=== PATIENT | female | born 1950 | race African-American/Black ===

== ENCOUNTER 2017-10-11 10:34 | Outpatient (CLI) | payer MEDICARE, OTHER ==
--- NOTE | 2017-10-11 11:35 | MMO ---
BILATERAL DIGITAL SCREENING MAMMOGRAMS: Date: 10/11/17 HISTORY: 66-year-old female presents for digital screening mammogram. FINDINGS: This patient's mammogram was interpreted with the assistance of computer-aided detection. Scattered areas of fibroglandular density are noted bilaterally. There are stable typically benign c alcifications bilaterally. Stable circumscribed mass in the left breast. IMPRESSION: BIRADS 2: Benign Finding(s) Continue routine screening. POS: REBECCA
== END 2017-10-11 10:35 | disposition home or self-care (01) ==
LOC: SCSMAMMO 10:34
PROVIDERS: ATTEND Family Medicine
DX: Z12.31 Encounter for screening mammogram for malignant neoplasm of breast (principal)
CPT/HCPCS: 77067; G0202

== ENCOUNTER 2018-11-06 10:18 | Outpatient (CLI) | payer MEDICARE, OTHER ==
--- NOTE | 2018-11-06 15:18 | MMO ---
BILATERAL SCREENING MAMMOGRAM: Date: 11/06/18 COMPARISON: 10/11/17, 09/22/16, and 06/30/15. HISTORY: Screening mammography. FINDINGS: This patient's mammogram was interpreted with the assistance of computer-aided detection. Scattered fibroglandular densities are present. Stable nodular density is seen on the left in the retroareolar region suggesting an intramammary node . IMPRESSION: BIRADS 2: Benign Finding(s) Annual screening mammography recommended. POS: REBECCA
== END 2018-11-06 10:19 | disposition home or self-care (01) ==
LOC: SCSMAMMO 10:18
PROVIDERS: ATTEND Family Medicine
DX: Z12.31 Encounter for screening mammogram for malignant neoplasm of breast (principal)
CPT/HCPCS: 77067

== ENCOUNTER 2019-01-01 11:17 | Outpatient (CLI) | payer MEDICARE, OTHER ==
[2019-01-01 14:54] LABS: #Basophils 0.1 thou/uL (0.0-0.2); #Eosinphils 0.1 thou/uL (0.0-0.7); #Lymphocytes 2.9 thou/uL (1.20-3.40); #Monocytes 0.7 thou/uL (0.11-0.59); #Neutrophils 4.7 thou/uL (1.40-6.50); %Basophils 1.1 % (0.0-1.0); %Eosinophils 1.1 % (0.0-10.0); %Lymphocytes 34.1 % (21.0-51.0); %Monocytes 8.4 % (0.0-10.0); %Neutrophils 55.3 % (42.0-75.0); Hemoglobin 15.6 g/dL (12.0-16.0); Mean Corpuscular HGB CONC 32.6 g/dL (32.0-36.0); Mean Platelet Volume 8.1 fL (7.4-10.4); Platelet Count 253 thou/uL (130-400); RBC Distribution Width 11.9 % (11.5-14.5); Red Blood Cell (RBC) Count 5.03 mill/uL (4.20-5.40); White Blood Cell (WBC) Count 8.5 thou/uL (4.8-10.8)
[2019-01-01 14:59] LABS: INR-International Normal Ratio 1.3; Prothrombin Time 15.8 SEC (12.0-14.7)
[2019-01-01 15:41] LABS: Anion Gap 14 mmol/L (10-20); BUN (Urea Nitrogen) 10 mg/dL (9.8-20.1); Calc. Creatinine Clearance 0 mL/min (70-130); Calcium 9.7 mg/dL (7.8-10.44); Carbon Dioxide 27 mmol/L (23-31); Chloride 102 mmol/L (98-107); Estimated GFR-MDRD 79; Glucose 86 mg/dL (80-115); Potassium 4.4 mmol/L (3.5-5.1); Sodium 139 mmol/L (136-145)
--- NOTE | 2019-01-02 09:23 | EKG ---
Test Reason : Blood Pressure : / mmHG Vent. Rate : 079 BPM Atrial Rate : 316 BPM P-R Int : 000 ms QRS Dur : 084 ms QT Int : 422 ms P-R-T Axes : 000 050 053 degrees QTc Int : 483 ms Atrial flutter with variable A-V block Low voltage QRS Cannot rule out Anterior infarct , age undetermined Abnormal ECG No previous ECGs available Confirmed by DR. Franc ABBASI ([id number]) on 01/02/2019 9:23:23 AM Referred By: KRISTIN Confirmed By:DR. Franc ABBASI
== END 2019-01-01 11:18 | disposition home or self-care (01) ==
LOC: LABBT 11:17
PROVIDERS: ATTEND Internal Medicine Cardiovascular Disease
DX: Z01.818 Encounter for other preprocedural examination (principal); I48.91 Unspecified atrial fibrillation
CPT/HCPCS: 80048; 85025; 85610; 85730; 93005; 93010

== ENCOUNTER 2019-01-04 05:53 | Day surgery (SDC) | payer MEDICARE, OTHER ==
[2019-01-01 13:54] VITALS: BMI 35.0
[2019-01-04] MEDS ORDERED: PROPOFOL 20 ML ONE (06:37)
[2019-01-04] MEDS ORDERED: PROPOFOL 200 MG/20 ML VIAL ONE (13:20)
--- NOTE | 2019-01-04 19:22 | ECHO ---
DATE OF SERVICE: 01/04/19 PROCEDURES PERFORMED: Direct current synchronized cardioversion. SUMMARY: The patient is a pleasant 68-year-old -[place] female who comes to the outpatient area for a planned TONY cardioversion. Please see TONY report for details. After adequate sedation was achieved by the Anesthesiology Department, one single AICD shock was deli harpreet successfully at 100 joules synchronized converting her from atrial flutter into sinus rhythm [facility] PACs. Within three minutes of her being in normal rhythm, she went back into atrial flutter. At at time she was still under sedation, so a second shock was delivered at 100 joules in a synchronized fashion successfully converting her into sinus rhythm. Ten minutes afterwards at the time of this di ctation she is still remaining in sinus rhythm. RECOMMENDATIONS: 1. Continued full anticoagulation. 2. Continue Flecainide. If she fails, we will refer her to electrophysiology for consideration o f an ablation.
== END 2019-01-04 09:28 | disposition home or self-care (01) ==
LOC: CCL 05:53
PROVIDERS: ATTEND Internal Medicine Cardiovascular Disease
PROC: 5A2204Z Restoration of Cardiac Rhythm, Single (ICD-10-PCS; principal; 2019-01-04)
DX: I48.92 Unspecified atrial flutter (principal); I48.0 Paroxysmal atrial fibrillation; M81.0 Age-related osteoporosis without current pathological fracture; E78.5 Hyperlipidemia, unspecified; I10 Essential (primary) hypertension; Z79.01 Long term (current) use of anticoagulants; Z79.899 Other long term (current) drug therapy; Z88.0 Allergy status to penicillin; Z91.018 Allergy to other foods; Z91.041 Radiographic dye allergy status
CPT/HCPCS: 92960; 93312; J2704

== ENCOUNTER 2020-05-08 19:30 | Outpatient (CLI) | payer MEDICARE, OTHER | END 2020-05-08 19:31 | disposition home or self-care (01) | LOC: SLEEPLAB 19:30 | PROVIDERS: ATTEND Family Medicine | DX: G47.33 Obstructive sleep apnea (adult) (pediatric) (principal); R53.83 Other fatigue; R06.83 Snoring; I10 Essential (primary) hypertension; G47.10 Hypersomnia, unspecified; G47.00 Insomnia, unspecified | CPT/HCPCS: 95810 ==

== ENCOUNTER 2021-03-10 09:41 | Outpatient (CLI) | payer MEDICARE, OTHER | END 2021-03-10 09:42 | disposition home or self-care (01) | LOC: BICMAMMO 09:41 | PROVIDERS: ATTEND Family Medicine | DX: Z12.31 Encounter for screening mammogram for malignant neoplasm of breast (principal); Z13.820 Encounter for screening for osteoporosis; M85.89 Other specified disorders of bone density and structure, multiple sites; Z78.0 Asymptomatic menopausal state | CPT/HCPCS: 77063; 77067; 77080 ==

== ENCOUNTER 2022-03-30 08:32 | Outpatient (CLI) | payer MEDICARE, OTHER ==
[2022-03-30] MEDS ORDERED: Iopamidol 370 76% 100 ML VIAL ONE (08:53)
== END 2022-03-30 08:33 | disposition home or self-care (01) ==
LOC: CT 08:32
PROVIDERS: ATTEND Urology
DX: N20.0 Calculus of kidney (principal); N39.0 Urinary tract infection, site not specified; D17.71 Benign lipomatous neoplasm of kidney; N28.1 Cyst of kidney, acquired; K80.20 Calculus of gallbladder without cholecystitis without obstruction; K57.30 Diverticulosis of large intestine without perforation or abscess without bleeding
CPT/HCPCS: 74178; Q9967

== ENCOUNTER 2022-04-07 12:21 | Outpatient (CLI) | payer MEDICARE, OTHER | END 2022-04-07 12:22 | disposition home or self-care (01) | LOC: NM 12:21 | PROVIDERS: ATTEND Urology | DX: N20.0 Calculus of kidney (principal) | CPT/HCPCS: 78708; A4641; A9562 ==

== ENCOUNTER 2022-04-30 12:02 | Outpatient (CLI) | payer MEDICARE, OTHER | END 2022-04-30 12:03 | disposition home or self-care (01) | LOC: LABBT 12:02 | PROVIDERS: ATTEND Urology | DX: Z01.818 Encounter for other preprocedural examination (principal); N20.0 Calculus of kidney; Z20.822 Contact with and (suspected) exposure to COVID-19 | CPT/HCPCS: 93005; U0003; U0005; 93010 ==

== ENCOUNTER 2022-05-05 05:54 | Observation (INO) | payer MEDICARE, OTHER ==
[2022-04-30 14:33] LABS: Hemoglobin 13.7 g/dL (12.0-15.5); Mean Corpuscular HGB CONC 32.6 g/dL (32.0-36.0); Mean Corpuscular Hemoglobin 29.3 pg (27.0-33.0); Mean Corpuscular Volume 89.9 fl (81.6-98.3); Mean Platelet Volume 9.4 fl (7.4-10.4); Platelet Count 348 10x3/uL (150-450); RBC Distribution Width 14.5 % (11.5-14.5); Red Blood Cell (RBC) Count 4.67 10x6/uL (3.90-5.03); White Blood Cell (WBC) Count 10.2 10x3/uL (3.5-10.5)
[2022-04-30 14:52] LABS: PTT 31.3 sec (22.0-33.0); Prothrombin Time 10.5 sec (9.5-12.1)
[2022-04-30 14:55] LABS: Anion Gap 16 mmol/L (10-20); BUN (Urea Nitrogen) 14 mg/dL (9.8-20.1); Calc. Creatinine Clearance 0 mL/min (70-130); Calcium 9.7 mg/dL (7.8-10.44); Carbon Dioxide 27 mmol/L (23-31); Chloride 99 mmol/L (98-107); Glucose 87 mg/dL (83-110); Sodium 138 mmol/L (136-145)
[2022-05-05] MEDS ORDERED: Meropenem 2 GM in Sodium Chloride 0.9% 100 ML IVPB SCH (06:30)
[2022-05-05] MEDS ORDERED: Iopamidol 0 ML ONE (07:05)
[2022-05-05] MEDS ORDERED: Ioversol 68 % 50 ML VIAL ONE (07:05)
[2022-05-05] MEDS ORDERED: Triamcinolone 40 MG/ML VIAL ONE (07:08)
[2022-05-05] MEDS ORDERED: fentaNYL Citrate/PF 100 MCG/2 ML SYRINGE ONE ×2 (07:19→10:49)
[2022-05-05] MEDS ORDERED: PHENYLEPHRINE-NS 100 MCG/ML 10 ML SYRINGE ONE (08:38)
[2022-05-05] MEDS ORDERED: Rocuronium Bromide 10 MG/ML (10ML VIAL) ONE (08:38)
[2022-05-05] MEDS ORDERED: Ondansetron PF 4 MG/2 ML Vial ONE (08:38)
[2022-05-05] MEDS ORDERED: PROPOFOL 200 MG/20 ML VIAL ONE (08:38)
[2022-05-05] MEDS ORDERED: Dexamethasone 20 MG/5 ML VIAL ONE (08:38)
[2022-05-05] MEDS ORDERED: Lidocaine 1% PF 5 ML VIAL ONE (08:38)
[2022-05-05] MEDS ORDERED: Glycopyrrolate 0.2 MG/ML 5 ML SYRINGE ONE (08:38)
[2022-05-05] MEDS ORDERED: Mag-Al 1200 mg/1200 mg/30 ML UDCUP PO PRN (11:57)
[2022-05-05] MEDS ORDERED: Acetaminophen 500 MG TAB PO PRN (11:57)
[2022-05-05] MEDS ORDERED: Phenazopyridine HCl 97.5 MG TABLET PO PRN (11:57)
[2022-05-05] MEDS ORDERED: Morphine 4 MG/ML VIAL SLOW IVP PRN (11:57)
[2022-05-05] MEDS ORDERED: Morphine 2 MG/ML VIAL SLOW IVP PRN (11:57)
[2022-05-05] MEDS ORDERED: Zolpidem Tartrate 5 MG TAB PO PRN (11:57)
[2022-05-05] MEDS ORDERED: diphenhydrAMINE 50 MG/ML VIAL IVP PRN (11:57)
[2022-05-05] MEDS ORDERED: HYDROcodone/Acetaminophen 5/325 mg Tablet PO PRN ×2 (11:57)
[2022-05-05] MEDS ORDERED: Sodium Chloride 0.9% 1,000 ML IV SCH ×2 (12:00→15:40)
[2022-05-05] MEDS ORDERED: Phenazopyridine HCl 100 MG TAB PO PRN (12:17)
[2022-05-05 12:19] LABS: #Eosinphils 0.1 thou/uL (0.0-0.7); #Monocytes 0.5 thou/uL (0.11-0.59); #Neutrophils 7.6 thou/uL (1.40-6.50); %Basophils 0.3 % (0.0-1.0); %Eosinophils 1.1 % (0.0-10.0); %Lymphocytes 19.4 % (21.0-51.0); %Monocytes 4.8 % (0.0-10.0); %Neutrophils 74.4 % (42.0-75.0); Hemoglobin 12.6 g/dL (12.0-16.0); Mean Corpuscular HGB CONC 32.4 g/dL (32.0-36.0); Mean Corpuscular Volume 95.6 fL (78.0-98.0); Mean Platelet Volume 6.6 fL (7.4-10.4); Platelet Count 307 thou/uL (130-400); RBC Distribution Width 12.4 % (11.5-14.5); Red Blood Cell (RBC) Count 4.06 mill/uL (4.20-5.40); White Blood Cell (WBC) Count 10.3 thou/uL (4.8-10.8)
[2022-05-05] MEDS ORDERED: Fentanyl 100 MCG/2 ML VIAL ONE (12:32)
[2022-05-05 12:46] LABS: Anion Gap 13 mmol/L (10-20); BUN (Urea Nitrogen) 10 mg/dL (9.8-20.1); Calc. Creatinine Clearance 70 mL/min (70-130); Calcium 8.7 mg/dL (7.8-10.44); Carbon Dioxide 25 mmol/L (23-31); Chloride 106 mmol/L (98-107); Glucose 108 mg/dL (83-110); Potassium 3.8 mmol/L (3.5-5.1); Sodium 140 mmol/L (136-145)
[2022-05-05] MEDS: Meropenem 1 GM in Sodium Chloride 0.9% 100 ML IVPB SCH ×2 (14:00→21:53)
[2022-05-05 14:50] VITALS: BMI 30.7
[2022-05-05] MEDS ORDERED: hydrALAZINE 20 MG/ML VIAL SLOW IVP PRN ×2 (15:38)
[2022-05-05] MEDS ORDERED: Bisacodyl 10 MG SUPP PR SCH (19:30)
[2022-05-05] MEDS: Flecainide 50 MG TAB PO SCH (19:55)
[2022-05-05] MEDS: Docusate 100 MG CAP PO SCH (19:55)
[2022-05-05] MEDS: Famotidine/PF 20 mg/2ml Vial SLOW IVP SCH (19:56)
[2022-05-05] MEDS: Trospium 20 MG TAB PO SCH (19:56)
[2022-05-06 05:21] LABS: #Basophils 0.1 thou/uL (0.0-0.2); #Lymphocytes 1.3 thou/uL (1.20-3.40); #Monocytes 1.5 thou/uL (0.11-0.59); #Neutrophils 11.2 thou/uL (1.40-6.50); %Basophils 0.6 % (0.0-1.0); %Eosinophils 0.1 % (0.0-10.0); %Lymphocytes 9.4 % (21.0-51.0); %Monocytes 10.7 % (0.0-10.0); %Neutrophils 79.2 % (42.0-75.0); Hemoglobin 11.8 g/dL (12.0-16.0); Mean Corpuscular HGB CONC 32.7 g/dL (32.0-36.0); Mean Corpuscular Hemoglobin 30.6 pg (27.0-31.0); Mean Corpuscular Volume 93.5 fL (78.0-98.0); Mean Platelet Volume 6.4 fL (7.4-10.4); Platelet Count 321 thou/uL (130-400); RBC Distribution Width 12.7 % (11.5-14.5); Red Blood Cell (RBC) Count 3.86 mill/uL (4.20-5.40); White Blood Cell (WBC) Count 14.1 thou/uL (4.8-10.8)
[2022-05-06 05:37] LABS: Anion Gap 9 mmol/L (10-20); BUN (Urea Nitrogen) 10 mg/dL (9.8-20.1); Calc. Creatinine Clearance 80 mL/min (70-130); Calcium 8.7 mg/dL (7.8-10.44); Carbon Dioxide 26 mmol/L (23-31); Chloride 103 mmol/L (98-107); Glucose 115 mg/dL (83-110); Potassium 3.4 mmol/L (3.5-5.1); Sodium 135 mmol/L (136-145)
[2022-05-06] MEDS: Meropenem 1 GM in Sodium Chloride 0.9% 100 ML IVPB SCH ×2 (06:17→14:43)
[2022-05-06] MEDS ORDERED: Bisacodyl 10 MG SUPP PR PRN (08:08)
[2022-05-06] MEDS ORDERED: Hydrochlorothiazide 25 MG TAB PO SCH (09:00)
[2022-05-06] MEDS ORDERED: Amlodipine 10 MG TAB PO SCH (09:00)
[2022-05-06] MEDS ORDERED: Non-Formulary Item 1 EACH (Hydrochlorothiazide [Hydrochlorothiazide] 12.5 MG Capsule) PO SCH (09:00)
[2022-05-06] MEDS ORDERED: Non-Formulary Item 1 EACH (Felodipine [Felodipine Er] 10 MG Tab.Er.24h) PO SCH (09:00)
[2022-05-06] MEDS: Docusate 100 MG CAP PO SCH (09:53)
[2022-05-06] MEDS: Flecainide 50 MG TAB PO SCH (09:53)
[2022-05-06] MEDS: Trospium 20 MG TAB PO SCH (09:54)
[2022-05-06] MEDS: Famotidine/PF 20 mg/2ml Vial SLOW IVP SCH (09:54)
[2022-05-06] MEDS ORDERED: Fleet Enema 133 ML BOT PR SCH (14:00)
[2022-05-06] MEDS ORDERED: Albuterol Sulfate 1.25 MG/3 ML NEB NEB SCH (15:00)
[2022-05-06 17:12] VITALS: BP 121/75; TEMP 99.1
[2022-05-13 09:41] LABS: Color Tan (.); Mg Ammon Phos 70 % (.); Stone Weight 597 mg (.)
== END 2022-05-06 17:51 | disposition home or self-care (01) ==
LOC: SDC 05:54 → MSONC 11:57
PROVIDERS: ADMIT Urology; ATTEND Urology
PROC: 0TC43ZZ Extirpation of Matter from Left Kidney Pelvis, Percutaneous Approach (ICD-10-PCS; principal; 2022-05-05)
PROC: 0T778DZ Dilation of Left Ureter with Intraluminal Device, Via Natural or Artificial Opening Endoscopic (ICD-10-PCS; 2022-05-05)
DX: N20.0 Calculus of kidney (principal); N39.0 Urinary tract infection, site not specified; K59.00 Constipation, unspecified; I10 Essential (primary) hypertension; E78.00 Pure hypercholesterolemia, unspecified; I48.0 Paroxysmal atrial fibrillation; D17.71 Benign lipomatous neoplasm of kidney; K80.20 Calculus of gallbladder without cholecystitis without obstruction; K57.30 Diverticulosis of large intestine without perforation or abscess without bleeding; Z79.2 Long term (current) use of antibiotics; Z79.899 Other long term (current) drug therapy; Z88.0 Allergy status to penicillin; Z91.018 Allergy to other foods; Z91.041 Radiographic dye allergy status; Z01.818 Encounter for other preprocedural examination; Z20.822 Contact with and (suspected) exposure to COVID-19
CPT/HCPCS: 50080; 52332; 71045; 71046; 74018; 74176; 80048 ×3; 82365; 85025 ×2; 85027; 85610; 85730; 86850; 86900; 86901; 86920; 96365; 96366 ×2; 96375; 96376; C2617; G0378 ×2; 36415; 76000; 88300; 93005; 93010; J1100; J2185; J2405; J2704; J3010; J3301; J3490; J7050; Q9967; S0028; U0003; U0005

== ENCOUNTER 2022-05-26 09:45 | Outpatient (CLI) | payer MEDICARE, OTHER | END 2022-05-26 09:46 | disposition home or self-care (01) | LOC: RAD 09:45 | DX: N20.0 Calculus of kidney (principal); J98.11 Atelectasis | CPT/HCPCS: 71046; 74018 ==

== ENCOUNTER 2022-06-16 06:55 | Inpatient (IN) | payer MEDICARE, OTHER ==
[2022-06-11 13:33] LABS: Hemoglobin 12.3 g/dL (12.0-15.5); Mean Corpuscular HGB CONC 32.8 g/dL (32.0-36.0); Mean Corpuscular Hemoglobin 29.4 pg (27.0-33.0); Mean Corpuscular Volume 89.5 fl (81.6-98.3); Mean Platelet Volume 9.3 fl (7.4-10.4); Platelet Count 314 10x3/uL (150-450); Red Blood Cell (RBC) Count 4.19 10x6/uL (3.90-5.03); White Blood Cell (WBC) Count 9.3 10x3/uL (3.5-10.5)
[2022-06-11 13:49] LABS: PTT 29.1 sec (22.0-33.0); Prothrombin Time 10.4 sec (9.5-12.1)
[2022-06-11 14:03] LABS: Anion Gap 12 mmol/L (10-20); BUN (Urea Nitrogen) 10 mg/dL (9.8-20.1); Calc. Creatinine Clearance 0 mL/min (70-130); Carbon Dioxide 29 mmol/L (23-31); Chloride 104 mmol/L (98-107); Estimated GFR 83; Glucose 87 mg/dL (83-110); Potassium 3.6 mmol/L (3.5-5.1); Sodium 141 mmol/L (136-145)
[2022-06-16] MEDS ORDERED: Ioversol 68 % 50 ML VIAL ONE (07:07)
[2022-06-16] MEDS ORDERED: Meropenem 2 GM in Sodium Chloride 0.9% 100 ML IVPB SCH (07:30)
[2022-06-16] MEDS ORDERED: fentaNYL Citrate/PF 100 MCG/2 ML SYRINGE ONE (08:45)
[2022-06-16] MEDS ORDERED: HYDROmorphone 0.5 MG/0.5 ML SYRINGE ONE (08:46)
[2022-06-16] MEDS ORDERED: Famotidine/PF 20 mg/2ml Vial ONE (08:46)
[2022-06-16] MEDS ORDERED: SUGAMMADEX SODIUM 200 MG/2 ML VIAL ONE (08:46)
[2022-06-16] MEDS ORDERED: Bupivacaine/Epinephrine 0.25% 30 ML VIAL ONE (09:39)
[2022-06-16] MEDS ORDERED: PROPOFOL 200 MG/20 ML VIAL ONE (10:44)
[2022-06-16] MEDS ORDERED: Ondansetron PF 4 MG/2 ML Vial ONE ×2 (10:44→16:53)
[2022-06-16] MEDS ORDERED: Rocuronium Bromide 10 MG/ML (10ML VIAL) ONE (10:44)
[2022-06-16] MEDS ORDERED: Dexamethasone 20 MG/5 ML VIAL ONE (10:44)
[2022-06-16] MEDS ORDERED: Lidocaine 1% PF 5 ML VIAL ONE (10:44)
[2022-06-16] MEDS ORDERED: Succinylcholine 200 MG/10 ml SYRINGE FS ONE (10:44)
[2022-06-16] MEDS ORDERED: Meperidine HCl/PF 25 MG/ML VIAL ONE (12:04)
[2022-06-16] MEDS ORDERED: Phenazopyridine HCl 100 MG TAB ONE (12:42)
[2022-06-16] MEDS ORDERED: Oxybutynin 5 MG TAB ONE ×2 (12:42→18:27)
[2022-06-16] MEDS ORDERED: Fentanyl 100 MCG/2 ML VIAL ONE (13:33)
[2022-06-16] MEDS ORDERED: Promethazine HCl 25 MG/ML VIAL ONE (13:51)
[2022-06-16 14:23] LABS: #Lymphocytes 0.5 thou/uL (1.20-3.40); #Monocytes 0.1 thou/uL (0.11-0.59); #Neutrophils 12.2 thou/uL (1.40-6.50); %Basophils 0.1 % (0.0-1.0); %Eosinophils 0.1 % (0.0-10.0); %Lymphocytes 3.6 % (21.0-51.0); %Monocytes 0.9 % (0.0-10.0); %Neutrophils 95.4 % (42.0-75.0); Hemoglobin 12.3 g/dL (12.0-16.0); Mean Corpuscular HGB CONC 32.4 g/dL (32.0-36.0); Mean Corpuscular Hemoglobin 30.7 pg (27.0-31.0); Mean Corpuscular Volume 94.7 fL (78.0-98.0); Mean Platelet Volume 6.8 fL (7.4-10.4); Platelet Count 303 thou/uL (130-400); RBC Distribution Width 12.6 % (11.5-14.5); Red Blood Cell (RBC) Count 4.01 mill/uL (4.20-5.40); White Blood Cell (WBC) Count 12.8 thou/uL (4.8-10.8)
[2022-06-16 14:39] LABS: Anion Gap 13 mmol/L (10-20); BUN (Urea Nitrogen) 12 mg/dL (9.8-20.1); Calc. Creatinine Clearance 79 mL/min (70-130); Calcium 8.7 mg/dL (7.8-10.44); Carbon Dioxide 22 mmol/L (23-31); Chloride 106 mmol/L (98-107); Estimated GFR 81; Glucose 123 mg/dL (83-110); Potassium 3.2 mmol/L (3.5-5.1); Sodium 138 mmol/L (136-145)
[2022-06-16] MEDS ORDERED: diphenhydrAMINE 50 MG/ML VIAL IVP PRN (15:28)
[2022-06-16] MEDS ORDERED: HYDROcodone/Acetaminophen 5/325 mg Tablet PO PRN ×2 (15:28)
[2022-06-16] MEDS ORDERED: hydrALAZINE 20 MG/ML VIAL SLOW IVP PRN ×2 (15:28)
[2022-06-16] MEDS ORDERED: Promethazine HCl 25 MG/ML VIAL IM PRN (15:28)
[2022-06-16] MEDS ORDERED: Morphine 2 MG/ML VIAL SLOW IVP PRN (15:28)
[2022-06-16] MEDS ORDERED: Mag-Al 1200 mg/1200 mg/30 ML UDCUP PO PRN (15:28)
[2022-06-16] MEDS ORDERED: Morphine 4 MG/ML VIAL SLOW IVP PRN (15:28)
[2022-06-16] MEDS ORDERED: Sodium Chloride 0.9% 1,000 ML IV SCH (15:30)
[2022-06-16] MEDS ORDERED: NS 0.9% w/ 20 MEQ KCL 1,000 ML ONE (15:57)
[2022-06-16] MEDS ORDERED: Potassium Chloride 20 MEQ TAB PO SCH (16:00)
[2022-06-16] MEDS: NS 0.9% w/ 20 MEQ KCL 1,000 ML/1,000 ML BAG IV SCH (17:47)
[2022-06-16] MEDS: Oxybutynin 5 MG TAB PO PRN (18:30)
[2022-06-16] MEDS: Acetaminophen 500 MG TAB PO PRN (20:33)
[2022-06-16] MEDS: Docusate 100 MG CAP PO SCH (20:33)
[2022-06-16] MEDS: Famotidine/PF 20 mg/2ml Vial SLOW IVP SCH (20:34)
[2022-06-16] MEDS: Flecainide 50 MG TAB PO SCH (20:34)
[2022-06-16] MEDS ORDERED: Docusate 100 MG CAP PO SCH (21:00)
[2022-06-16 21:02] VITALS: BMI 29.6
[2022-06-16] MEDS: Meropenem 1 GM in Sodium Chloride 0.9% 100 ML IVPB SCH (21:16)
[2022-06-16] MEDS ORDERED: Meropenem 1 GM in Sodium Chloride 0.9% 100 ML IVPB SCH (22:00)
[2022-06-16 23:22] LABS: SARS-CoV-2 NAA Rapid Test Not Detected (NotDetected)
[2022-06-17] MEDS: Meropenem 1 GM in Sodium Chloride 0.9% 100 ML IVPB SCH ×3 (04:10→20:50)
[2022-06-17 04:41] LABS: #Lymphocytes 0.7 thou/uL (1.20-3.40); #Monocytes 1.1 thou/uL (0.11-0.59); #Neutrophils 14.2 thou/uL (1.40-6.50); %Basophils 0.3 % (0.0-1.0); %Eosinophils 0.1 % (0.0-10.0); %Lymphocytes 4.3 % (21.0-51.0); %Monocytes 6.8 % (0.0-10.0); %Neutrophils 88.6 % (42.0-75.0); Hemoglobin 11.3 g/dL (12.0-16.0); Mean Corpuscular HGB CONC 32.9 g/dL (32.0-36.0); Mean Corpuscular Hemoglobin 31.5 pg (27.0-31.0); Mean Corpuscular Volume 95.7 fL (78.0-98.0); Platelet Count 270 thou/uL (130-400); RBC Distribution Width 12.6 % (11.5-14.5); Red Blood Cell (RBC) Count 3.57 mill/uL (4.20-5.40)
[2022-06-17 05:04] LABS: Anion Gap 15 mmol/L (10-20); BUN (Urea Nitrogen) 12 mg/dL (9.8-20.1); Calc. Creatinine Clearance 70 mL/min (70-130); Calcium 8.4 mg/dL (7.8-10.44); Carbon Dioxide 21 mmol/L (23-31); Chloride 104 mmol/L (98-107); Estimated GFR 68; Glucose 114 mg/dL (83-110); Potassium 3.9 mmol/L (3.5-5.1); Sodium 136 mmol/L (136-145)
[2022-06-17] MEDS: Oxybutynin 5 MG TAB PO PRN (05:43)
[2022-06-17] MEDS: NS 0.9% w/ 20 MEQ KCL 1,000 ML/1,000 ML BAG IV SCH (06:52)
[2022-06-17] MEDS ORDERED: Phenazopyridine HCl 100 MG TAB PO PRN (07:26)
[2022-06-17] MEDS: Flecainide 50 MG TAB PO SCH ×2 (09:54→20:42)
[2022-06-17] MEDS: Amlodipine 10 MG TAB PO SCH (09:54)
[2022-06-17] MEDS: Hydrochlorothiazide 25 MG TAB PO SCH (09:55)
[2022-06-17] MEDS: Docusate 100 MG CAP PO SCH ×2 (09:55→20:42)
[2022-06-17] MEDS: Famotidine/PF 20 mg/2ml Vial SLOW IVP SCH (09:57)
[2022-06-17] MEDS ORDERED: Nitroglycerin 0.4 MG TAB (25 Tab Bottle) ONE (19:41)
[2022-06-17] MEDS: Famotidine 20 MG TAB PO SCH (20:51)
[2022-06-17] MEDS: Acetaminophen 500 MG TAB PO PRN (23:11)
[2022-06-18] MEDS: Meropenem 1 GM in Sodium Chloride 0.9% 100 ML IVPB SCH ×3 (04:08→21:39)
[2022-06-18 05:05] LABS: #Basophils 0.1 thou/uL (0.0-0.2); #Lymphocytes 1.8 thou/uL (1.20-3.40); #Monocytes 1.6 thou/uL (0.11-0.59); #Neutrophils 10.2 thou/uL (1.40-6.50); %Basophils 0.5 % (0.0-1.0); %Eosinophils 0.3 % (0.0-10.0); %Lymphocytes 13.1 % (21.0-51.0); %Monocytes 11.5 % (0.0-10.0); %Neutrophils 74.7 % (42.0-75.0); Hemoglobin 10.5 g/dL (12.0-16.0); Mean Corpuscular HGB CONC 32.2 g/dL (32.0-36.0); Mean Corpuscular Volume 96.3 fL (78.0-98.0); Mean Platelet Volume 7.1 fL (7.4-10.4); Platelet Count 241 thou/uL (130-400); RBC Distribution Width 12.6 % (11.5-14.5); White Blood Cell (WBC) Count 13.7 thou/uL (4.8-10.8)
[2022-06-18 05:29] LABS: Anion Gap 12 mmol/L (10-20); BUN (Urea Nitrogen) 17 mg/dL (9.8-20.1); Calc. Creatinine Clearance 74 mL/min (70-130); Calcium 8.2 mg/dL (7.8-10.44); Carbon Dioxide 25 mmol/L (23-31); Chloride 105 mmol/L (98-107); Estimated GFR 73; Glucose 100 mg/dL (83-110); Potassium 3.5 mmol/L (3.5-5.1); Sodium 138 mmol/L (136-145)
[2022-06-18] MEDS: Famotidine 20 MG TAB PO SCH ×2 (09:34→21:39)
[2022-06-18] MEDS: Flecainide 50 MG TAB PO SCH ×2 (09:34→21:38)
[2022-06-18] MEDS: Amlodipine 10 MG TAB PO SCH (09:34)
[2022-06-18] MEDS: Hydrochlorothiazide 25 MG TAB PO SCH (09:35)
[2022-06-18] MEDS: Docusate 100 MG CAP PO SCH ×2 (09:35→21:39)
[2022-06-18] MEDS ORDERED: Bisacodyl 10 MG SUPP PR PRN (13:06)
[2022-06-18] MEDS: Acetaminophen 500 MG TAB PO PRN (16:25)
[2022-06-19] MEDS: Meropenem 1 GM in Sodium Chloride 0.9% 100 ML IVPB SCH ×2 (04:52→13:10)
[2022-06-19 05:25] LABS: #Eosinphils 0.1 thou/uL (0.0-0.7); #Lymphocytes 1.7 thou/uL (1.20-3.40); #Monocytes 1.4 thou/uL (0.11-0.59); #Neutrophils 9.9 thou/uL (1.40-6.50); %Basophils 0.3 % (0.0-1.0); %Eosinophils 0.8 % (0.0-10.0); %Lymphocytes 13.1 % (21.0-51.0); %Monocytes 10.8 % (0.0-10.0); Hemoglobin 10.4 g/dL (12.0-16.0); Mean Corpuscular HGB CONC 31.8 g/dL (32.0-36.0); Mean Corpuscular Hemoglobin 30.4 pg (27.0-31.0); Mean Corpuscular Volume 95.6 fL (78.0-98.0); Mean Platelet Volume 7.4 fL (7.4-10.4); Platelet Count 249 thou/uL (130-400); RBC Distribution Width 12.5 % (11.5-14.5); Red Blood Cell (RBC) Count 3.43 mill/uL (4.20-5.40); White Blood Cell (WBC) Count 13.1 thou/uL (4.8-10.8)
[2022-06-19 05:31] LABS: Anion Gap 10 mmol/L (10-20); BUN (Urea Nitrogen) 15 mg/dL (9.8-20.1); Calc. Creatinine Clearance 86 mL/min (70-130); Calcium 8.3 mg/dL (7.8-10.44); Carbon Dioxide 28 mmol/L (23-31); Chloride 104 mmol/L (98-107); Estimated GFR 88; Glucose 96 mg/dL (83-110); Potassium 3.4 mmol/L (3.5-5.1); Sodium 139 mmol/L (136-145)
[2022-06-19] MEDS: Hydrochlorothiazide 25 MG TAB PO SCH (08:57)
[2022-06-19] MEDS: Amlodipine 10 MG TAB PO SCH (08:58)
[2022-06-19] MEDS: Famotidine 20 MG TAB PO SCH (08:58)
[2022-06-19] MEDS: Docusate 100 MG CAP PO SCH (08:58)
[2022-06-19] MEDS: Flecainide 50 MG TAB PO SCH (08:59)
[2022-06-19] MEDS ORDERED: Polyethylene Glycol 3350 17 GM Packet PER TUBE SCH (09:00)
[2022-06-19 12:43] VITALS: BP 129/60; TEMP 98.3
== END 2022-06-19 14:40 | disposition home or self-care (01) | DRG 660 ==
LOC: SDC 06:55 → 2SW 15:28 → OBSVTOIN 06-17 07:34 → 2SW 06-17 16:09
PROVIDERS: ADMIT Urology; ATTEND Urology
PROC: 0TC44ZZ Extirpation of Matter from Left Kidney Pelvis, Percutaneous Endoscopic Approach (ICD-10-PCS; principal; 2022-06-16)
PROC: 0TP5X0Z Removal of Drainage Device from Kidney, External Approach (ICD-10-PCS; 2022-06-16)
DX: N20.0 Calculus of kidney (principal); I48.92 Unspecified atrial flutter; J98.11 Atelectasis; E78.00 Pure hypercholesterolemia, unspecified; I48.0 Paroxysmal atrial fibrillation; M19.90 Unspecified osteoarthritis, unspecified site; R00.1 Bradycardia, unspecified; I44.30 Unspecified atrioventricular block; R50.82 Postprocedural fever; Z79.899 Other long term (current) drug therapy; Z79.01 Long term (current) use of anticoagulants; Z82.49 Family history of ischemic heart disease and other diseases of the circulatory system; Z83.3 Family history of diabetes mellitus
CPT/HCPCS: 36415; 71045; 71046; 74018; 76000; 80048; 82365; 85025; 85027; 85610; 85730; 86850; 86900; 86901; 87040; 87086; 87811; 88300; 93005; 93010; 93306; 96365; 96366; 96375; G0378; J1100; J1170; J2175; J2185; J2405; J2550; J2704; J3010; J3480; J3490; Q9967; S0028; U0002

== ENCOUNTER 2022-06-21 11:24 | Outpatient (CLI) | payer MEDICARE, OTHER | END 2022-06-21 11:25 | disposition home or self-care (01) | LOC: RAD 11:24 | PROVIDERS: ATTEND Urology | DX: N20.0 Calculus of kidney (principal) | CPT/HCPCS: 74018 ==

== ENCOUNTER 2022-07-07 12:33 | Outpatient (CLI) | payer MEDICARE, OTHER ==
[2022-07-07 13:54] LABS: Hemoglobin 11.5 g/dL (12.0-15.5); Mean Corpuscular HGB CONC 32.7 g/dL (32.0-36.0); Mean Corpuscular Hemoglobin 28.8 pg (27.0-33.0); Mean Corpuscular Volume 88.2 fl (81.6-98.3); Platelet Count 511 10x3/uL (150-450); RBC Distribution Width 13.8 % (11.5-14.5); Red Blood Cell (RBC) Count 3.99 10x6/uL (3.90-5.03); White Blood Cell (WBC) Count 8.8 10x3/uL (3.5-10.5)
[2022-07-07 14:02] LABS: Anion Gap 14 mmol/L (10-20); BUN (Urea Nitrogen) 12 mg/dL (9.8-20.1); Calc. Creatinine Clearance 0 mL/min (70-130); Calcium 9.2 mg/dL (7.8-10.44); Carbon Dioxide 26 mmol/L (23-31); Chloride 100 mmol/L (98-107); Estimated GFR 71; Glucose 112 mg/dL (83-110); Potassium 3.7 mmol/L (3.5-5.1); Sodium 136 mmol/L (136-145)
[2022-07-07 14:04] LABS: PTT 29.4 sec (22.0-33.0); Prothrombin Time 10.9 sec (9.5-12.1)
== END 2022-07-07 12:34 | disposition home or self-care (01) ==
LOC: LABBT 12:33
PROVIDERS: ATTEND Urology
DX: Z01.818 Encounter for other preprocedural examination (principal); N20.0 Calculus of kidney; I10 Essential (primary) hypertension; I48.91 Unspecified atrial fibrillation; N39.0 Urinary tract infection, site not specified; D17.71 Benign lipomatous neoplasm of kidney; R31.29 Other microscopic hematuria; K80.20 Calculus of gallbladder without cholecystitis without obstruction; R79.89 Other specified abnormal findings of blood chemistry; Z79.01 Long term (current) use of anticoagulants; Z20.822 Contact with and (suspected) exposure to COVID-19
CPT/HCPCS: 80048; 85027; 85610; 85730; 87811; 93005; 93010

== ENCOUNTER 2022-07-12 06:16 | Day surgery (SDC) | payer MEDICARE, OTHER ==
[2022-07-09 10:15] VITALS: BMI 27.9
[2022-07-12] MEDS ORDERED: diphenhydrAMINE 50 MG/ML VIAL ONE (07:53)
[2022-07-12] MEDS ORDERED: Iopamidol 0 ML ONE (08:31)
[2022-07-12] MEDS ORDERED: Ioversol 68 % 50 ML VIAL ONE (08:38)
[2022-07-12] MEDS ORDERED: SUGAMMADEX SODIUM 200 MG/2 ML VIAL ONE (08:41)
[2022-07-12] MEDS ORDERED: Famotidine/PF 20 mg/2ml Vial ONE (08:41)
[2022-07-12] MEDS ORDERED: fentaNYL Citrate/PF 100 MCG/2 ML SYRINGE ONE (08:41)
[2022-07-12] MEDS ORDERED: Levofloxacin 500 mg/D5W 100 ml Premix Bag ONE (08:42)
[2022-07-12] MEDS ORDERED: Lidocaine 1% PF 5 ML VIAL ONE (08:56)
[2022-07-12] MEDS ORDERED: PROPOFOL 200 MG/20 ML VIAL ONE (08:56)
[2022-07-12] MEDS ORDERED: Metoclopramide HCl 10 MG/2 ML VIAL ONE (08:56)
[2022-07-12] MEDS ORDERED: Metoprolol Tartrate 5 MG/5 ML VIAL ONE (08:56)
[2022-07-12] MEDS ORDERED: ePHEDrine 50 MG/ML VIAL ONE (08:56)
[2022-07-12] MEDS ORDERED: Phenylephrine 10 MG/ML VIAL ONE (08:56)
[2022-07-12] MEDS ORDERED: Rocuronium Bromide 10 MG/ML (10ML VIAL) ONE (08:56)
[2022-07-12] MEDS ORDERED: Ondansetron PF 4 MG/2 ML Vial ONE (08:56)
[2022-07-12] MEDS ORDERED: Promethazine HCl 25 MG/ML VIAL IVPB PRN (10:17)
[2022-07-12] MEDS ORDERED: Promethazine HCl 25 MG/ML VIAL IM PRN (10:17)
[2022-07-12] MEDS ORDERED: Ondansetron HCl/PF 4 MG/2 ML Vial IVP PRN (10:17)
[2022-07-12] MEDS ORDERED: cefTRIAXone\\ROCEPHIN 2 GM VIAL ONE (11:17)
[2022-07-12] MEDS ORDERED: Phenazopyridine HCl 100 MG TAB ONE (11:39)
[2022-07-12] MEDS ORDERED: Oxybutynin 5 MG TAB ONE (11:40)
== END 2022-07-12 13:20 | disposition home or self-care (01) ==
LOC: SDC 06:16
PROVIDERS: ATTEND Urology
PROC: 0TC48ZZ Extirpation of Matter from Left Kidney Pelvis, Via Natural or Artificial Opening Endoscopic (ICD-10-PCS; principal; 2022-07-12)
PROC: 0T778DZ Dilation of Left Ureter with Intraluminal Device, Via Natural or Artificial Opening Endoscopic (ICD-10-PCS; 2022-07-12)
DX: N20.0 Calculus of kidney (principal); R82.71 Bacteriuria; I10 Essential (primary) hypertension; E78.00 Pure hypercholesterolemia, unspecified; I48.0 Paroxysmal atrial fibrillation; D17.71 Benign lipomatous neoplasm of kidney; Z87.440 Personal history of urinary (tract) infections; Z79.01 Long term (current) use of anticoagulants; Z79.2 Long term (current) use of antibiotics; Z79.899 Other long term (current) drug therapy; Z88.0 Allergy status to penicillin; Z91.018 Allergy to other foods; Z91.040 Latex allergy status
CPT/HCPCS: 74018; 74420; 82365; 88300; C1769; C2617; J0696; J1200; J1956; J2370; J2405; J2704; J2765; J3490; Q9967; S0028

== ENCOUNTER 2022-07-30 13:00 | Outpatient (CLI) | payer MEDICARE, OTHER ==
[2022-07-30 13:58] LABS: Hemoglobin 11.5 g/dL (12.0-15.5); Mean Corpuscular HGB CONC 33.1 g/dL (32.0-36.0); Mean Corpuscular Hemoglobin 29.5 pg (27.0-33.0); Mean Platelet Volume 9.5 fl (7.4-10.4); Platelet Count 384 10x3/uL (150-450); RBC Distribution Width 14.7 % (11.5-14.5); White Blood Cell (WBC) Count 6.9 10x3/uL (3.5-10.5)
[2022-07-30 14:16] LABS: PTT 29.5 sec (22.0-33.0); Prothrombin Time 10.6 sec (9.5-12.1)
[2022-07-30 14:24] LABS: Anion Gap 13 mmol/L (10-20); BUN (Urea Nitrogen) 10 mg/dL (9.8-20.1); Calc. Creatinine Clearance 0 mL/min (70-130); Calcium 9.4 mg/dL (7.8-10.44); Carbon Dioxide 28 mmol/L (23-31); Chloride 99 mmol/L (98-107); Estimated GFR 80; Glucose 86 mg/dL (83-110); Potassium 3.6 mmol/L (3.5-5.1); Sodium 136 mmol/L (136-145)
== END 2022-07-30 13:01 | disposition home or self-care (01) ==
LOC: LABBT 13:00
PROVIDERS: ATTEND Urology
DX: Z01.818 Encounter for other preprocedural examination (principal); Z20.822 Contact with and (suspected) exposure to COVID-19
CPT/HCPCS: 80048; 85027; 85610; 85730; 87811; 93005; 93010

== ENCOUNTER 2022-08-04 06:54 | Day surgery (SDC) | payer MEDICARE, OTHER ==
[2022-07-30 09:56] VITALS: BMI 30.2
[2022-08-04] MEDS ORDERED: Lidocaine 1% MPF 2 ML VIAL ONE ×2 (07:46→09:41)
[2022-08-04] MEDS ORDERED: Meropenem 2 GM, Admixture Fee 1 EACH in Sodium Chloride 0.9% 100 ML IVPB SCH (08:00)
[2022-08-04] MEDS ORDERED: Iopamidol 0 ML ONE (09:15)
[2022-08-04] MEDS ORDERED: HYDROmorphone 0.5 MG/0.5 ML SYRINGE ONE (09:18)
[2022-08-04] MEDS ORDERED: SUGAMMADEX SODIUM 200 MG/2 ML VIAL ONE (09:18)
[2022-08-04] MEDS ORDERED: Fentanyl 100 MCG/2 ML VIAL ONE (09:18)
[2022-08-04] MEDS ORDERED: Famotidine/PF 20 mg/2ml Vial ONE (09:32)
[2022-08-04] MEDS ORDERED: NEOSTIGMINE 3 MG/3 ML SYR 3 MG/3 ML SYRINGE ONE (09:41)
[2022-08-04] MEDS ORDERED: Dexamethasone 20 MG/5 ML VIAL ONE (09:41)
[2022-08-04] MEDS ORDERED: ePHEDrine 50 MG/ML VIAL ONE (09:41)
[2022-08-04] MEDS ORDERED: Glycopyrrolate 0.2 MG/ML 5 ML SYRINGE ONE (09:41)
[2022-08-04] MEDS ORDERED: Rocuronium Bromide 10 MG/ML (10ML VIAL) ONE (09:41)
[2022-08-04] MEDS ORDERED: Metoclopramide HCl 10 MG/2 ML VIAL ONE (09:41)
[2022-08-04] MEDS ORDERED: PROPOFOL 200 MG/20 ML VIAL ONE (09:41)
[2022-08-04] MEDS ORDERED: Ondansetron PF 4 MG/2 ML Vial ONE (09:41)
[2022-08-04] MEDS ORDERED: Oxybutynin 5 MG TAB ONE (12:09)
[2022-08-04] MEDS ORDERED: Phenazopyridine HCl 100 MG TAB ONE (12:09)
== END 2022-08-04 14:00 | disposition home or self-care (01) ==
LOC: SDC 06:54
PROVIDERS: ATTEND Urology
PROC: 0TC48ZZ Extirpation of Matter from Left Kidney Pelvis, Via Natural or Artificial Opening Endoscopic (ICD-10-PCS; principal; 2022-08-04)
PROC: 0T778DZ Dilation of Left Ureter with Intraluminal Device, Via Natural or Artificial Opening Endoscopic (ICD-10-PCS; 2022-08-04)
DX: N20.0 Calculus of kidney (principal); N21.0 Calculus in bladder; D17.71 Benign lipomatous neoplasm of kidney; I10 Essential (primary) hypertension; I48.91 Unspecified atrial fibrillation; E78.00 Pure hypercholesterolemia, unspecified; M85.80 Other specified disorders of bone density and structure, unspecified site; Z79.01 Long term (current) use of anticoagulants; Z79.2 Long term (current) use of antibiotics; Z79.899 Other long term (current) drug therapy; Z88.0 Allergy status to penicillin; Z91.018 Allergy to other foods; Z91.041 Radiographic dye allergy status
CPT/HCPCS: 74018; 74420; C1769; C2617; J1100; J1170; J2185; J2405; J2704; J2765; J3010; J3490; Q9967; S0028

== ENCOUNTER 2022-08-18 10:11 | Outpatient (CLI) | payer MEDICARE, OTHER | END 2022-08-18 10:12 | disposition home or self-care (01) | LOC: RAD 10:11 | PROVIDERS: ATTEND Urology | DX: N20.0 Calculus of kidney (principal); K59.00 Constipation, unspecified; Z96.0 Presence of urogenital implants | CPT/HCPCS: 74018 ==

== ENCOUNTER 2022-09-08 08:59 | Outpatient (CLI) | payer MEDICARE, OTHER | END 2022-09-08 09:00 | disposition home or self-care (01) | LOC: CT 08:59 | PROVIDERS: ATTEND Urology | DX: N13.2 Hydronephrosis with renal and ureteral calculous obstruction (principal); N39.0 Urinary tract infection, site not specified; K80.20 Calculus of gallbladder without cholecystitis without obstruction; D17.71 Benign lipomatous neoplasm of kidney; N28.1 Cyst of kidney, acquired; N05.9 Unspecified nephritic syndrome with unspecified morphologic changes; N28.89 Other specified disorders of kidney and ureter | CPT/HCPCS: 74176 ==

== ENCOUNTER 2022-11-23 08:30 | Day surgery (SDC) | payer MEDICARE, OTHER ==
[2022-11-23 18:54] VITALS: BP 157/70; TEMP 97.8
== END 2022-11-23 10:45 | disposition home or self-care (01) ==
LOC: SPEC 08:30
PROVIDERS: ATTEND Urology
PROC: 02HV33Z Insertion of Infusion Device into Superior Vena Cava, Percutaneous Approach (ICD-10-PCS; principal; 2022-11-23)
DX: N15.9 Renal tubulo-interstitial disease, unspecified (principal); Z88.0 Allergy status to penicillin; Z88.8 Allergy status to other drugs, medicaments and biological substances; Z91.018 Allergy to other foods; Z91.041 Radiographic dye allergy status
CPT/HCPCS: 36569; 96365; C1751; J0713; J3490

== ENCOUNTER 2023-03-10 13:41 | Outpatient (CLI) | payer MEDICARE, OTHER | END 2023-03-10 13:42 | disposition home or self-care (01) | LOC: ULT 13:41 | PROVIDERS: ATTEND Urology | DX: N20.0 Calculus of kidney (principal); N28.1 Cyst of kidney, acquired; N28.89 Other specified disorders of kidney and ureter | CPT/HCPCS: 76770 ==

== ENCOUNTER 2023-04-07 23:26 | Emergency (ER) | payer MEDICARE, OTHER ==
[2023-04-08 00:32] LABS: Bacteria/HPF 4+ HPF (None Seen); Bilirubin Negative (Negative); Blood, Urine 2+ (Negative); Clarity Extra Turbid (Clear); Glucose, Urine (Dipstick) Normal (Negative); Ketone, Urine Negative (Negative); Leukocyte 500 Leu/uL (Negative); Nitrite Negative (Negative); Protein, Urine (Dipstick) 50 mg/dL (Neg-Trace); Specific Gravity, Urine 1.017 (1.002-1.036); Urobilinogen Normal mg/dL (Less than 2); WBC/HPF Greater than 50 HPF (0-3)
[2023-04-08] MEDS ORDERED: Acetaminophen 500 MG TAB ONE (01:17)
[2023-04-08] MEDS ORDERED: Ondansetron PF 4 MG/2 ML Vial ONE (01:17)
[2023-04-08 01:37] LABS: #Monocytes 1.9 thou/uL (0.11-0.59); %Basophils 0.3 % (0.0-1.0); %Lymphocytes 11.1 % (21.0-51.0); %Monocytes 15.3 % (0.0-10.0); %Neutrophils 72.8 % (42.0-75.0); Mean Corpuscular HGB CONC 32.2 g/dL (32.0-36.0); Mean Corpuscular Hemoglobin 26.8 pg (27.0-31.0); Mean Corpuscular Volume 83.4 fl (78.0-98.0); Mean Platelet Volume 9.6 fL (7.4-10.4); Platelet Count 321 10x3/uL (130-400); RBC Distribution Width 14.2 % (11.5-14.5); Red Blood Cell (RBC) Count 3.73 mill/uL (4.20-5.40); White Blood Cell (WBC) Count 12.4 10x3/uL (4.8-10.8)
[2023-04-08 01:58] LABS: ALT (SGPT) 14 U/L (8-55); AST (SGOT) 16 U/L (5-34); Albumin 3.2 g/dL (3.4-4.8); Alkaline Phosphatase 107 U/L (40-110); Anion Gap 12 mmol/L (10-20); BUN (Urea Nitrogen) 23 mg/dL (9.8-20.1); Bilirubin, Total 0.4 mg/dL (0.2-1.2); Calc. Creatinine Clearance 0 mL/min (70-130); Calcium 8.8 mg/dL (7.8-10.44); Carbon Dioxide 26 mmol/L (23-31); Chloride 99 mmol/L (98-107); Estimated GFR 65; Globulin 4.2 g/dL (2.4-3.5); Glucose 113 mg/dL (83-110); Potassium 3.1 mmol/L (3.5-5.1); Protein, Total 7.4 g/dL (5.8-8.1); Sodium 134 mmol/L (136-145)
[2023-04-08] MEDS ORDERED: cefTRIAXone (ROCEPHIN) 1 GM VIAL ONE (02:32)
[2023-04-08 02:35] LABS: SARS-CoV-2 NAA Rapid Test Not Detected (NotDetected)
== END 2023-04-08 03:08 | disposition home or self-care (01) ==
LOC: ERS 23:26
DX: N39.0 Urinary tract infection, site not specified (principal); R11.0 Nausea; I10 Essential (primary) hypertension; Z20.822 Contact with and (suspected) exposure to COVID-19; Z79.01 Long term (current) use of anticoagulants; Z79.899 Other long term (current) drug therapy
CPT/HCPCS: 0240U; 71045; 80053; 85025; 87077; 87086; 96365; 96375; 99283; 81003; 81015; 87186; J0696; J2405

== ENCOUNTER 2023-12-27 10:36 | Outpatient (CLI) | payer MEDICARE, OTHER ==
[2023-12-27 12:22] LABS: #Basophils 0.1 10x3/uL (0.0-0.2); #Eosinphils 0.2 10x3/uL (0.0-0.5); #Monocytes 0.9 10x3/uL (0.0-1.1); #Neutrophils 4.9 10x3/uL (1.5-8.4); %Basophils 1.5 % (0.0-2.0); %Eosinophils 2.7 % (0.0-6.0); %Lymphocytes 21.4 % (18.0-47.0); %Monocytes 11.2 % (0.0-10.0); %Neutrophils 62.8 % (40.0-75.0); Hematocrit 37.3 % (34.9-44.5); Hemoglobin 11.1 g/dL (12.0-15.5); Mean Corpuscular HGB CONC 29.8 g/dL (32.0-36.0); Mean Corpuscular Hemoglobin 22.8 pg (27.0-33.0); Mean Corpuscular Volume 76.7 fl (81.6-98.3); Mean Platelet Volume 9.2 fl (7.4-10.4); Platelet Count 389 10x3/uL (150-450); RBC Distribution Width 28.6 % (11.5-14.5); Red Blood Cell (RBC) Count 4.86 10x6/uL (3.90-5.03); White Blood Cell (WBC) Count 7.8 10x3/uL (3.5-10.5)
[2023-12-27 12:55] LABS: Anion Gap 15 mmol/L (10-20); BUN (Urea Nitrogen) 12 mg/dL (9.8-20.1); Calc. Creatinine Clearance 0 mL/min (70-130); Calcium 9.7 mg/dL (7.8-10.44); Carbon Dioxide 26 mmol/L (23-31); Chloride 101 mmol/L (98-107); Estimated GFR 69; Glucose 104 mg/dL (83-110); Platelet Adequacy Comment Appears Adequate; Potassium 3.7 mmol/L (3.5-5.1); Sodium 138 mmol/L (136-145)
[2023-12-27 12:56] LABS: Anisocytosis SLIGHT = 6-15 cells (100X) (0-5/hpf); Hypochromia SLIGHT = 6-15 cells (100X) (0-5/hpf)
[2023-12-27 14:26] LABS: Hemoglobin A1c 5.1 % (4.0-6.0)
== END 2023-12-27 10:37 | disposition home or self-care (01) ==
LOC: LABBT 10:36
PROVIDERS: ATTEND Surgery
DX: Z01.818 Encounter for other preprocedural examination (principal); C18.2 Malignant neoplasm of ascending colon
CPT/HCPCS: 80048; 83036; 85025; 93005; 93010

== ENCOUNTER 2024-04-26 12:56 | Outpatient (CLI) | payer MEDICARE, OTHER | END 2024-04-26 12:57 | disposition home or self-care (01) | LOC: BICMAMMO 12:56 | PROVIDERS: ATTEND Family Medicine | DX: Z12.31 Encounter for screening mammogram for malignant neoplasm of breast (principal) | CPT/HCPCS: 77063; 77067 ==